=== PATIENT | female | born 1995 | race Caucasian/White ===

== ENCOUNTER 2017-10-30 14:36 | Emergency (ER) | payer BC, MEDICAID ==
[~2017-10-30] VITALS: Ht 175.3 cm; Wt 81.6 kg
--- OUTSIDE RECORDS SUMMARY | 2017-10-30 14:44 | XMS REPORT | Continuity of Care Document ---
Author Author [facility] Organization [facility] Address Unknown Phone Unavailable Allergies There is no data. Medications There is no data. Problems Date Dx Coded Attending Type Code Diagnosis Diagnosed By 11/22/2015 RENNY VARMA MD Ot R92.2 11/24/2015 RENNY VARMA MD Ot R92.2 11/28/2015 RENNY VARMA MD Ot R92.2 12/05/2015 RENNY VARMA MD Ot R92.2 02/03/2016 RENNY VARMA MD Ot R92.2 INCONCLUSIVE MAMMOGRAM 01/14/2017 RENNY VARMA MD, Ot R92.2 INCONCLUSIVE MAMMOGRAM Procedures There is no data. Results There is no data. Encounters ACCT No. Visit Date/Time Discharge Status Pt. Type Provider Facility Loc./Unit Complaint [id number] 11/21/2015 12:58:00 11/21/2015 23:59:59 CLS Outpatient RENNY VARMA MD [facility] [address] RAD LT BREAST WITH LUMP, RT BREAST NODULE
[2017-10-30] MEDS ORDERED: PRENATAL (15:03)
--- NOTE | 2017-10-30 15:08 | ED Syncope ---
General Chief Complaint: Dizziness/Syncope Stated Complaint: SYNCOPAL EPISODES Nursing Triage Note: ARRIVED VIA AMB TO ROOM 07. STATES SHE HAS HAD FAINTING SPELLS BEFORE AND DURING THIS AND KOJO WANTS HER TO HAVE A EKG. PT IS 14 WEEKS GESTATION. Source of Information: Patient Exam Limitations: No Limitations History of Present Illness Date Seen by Provider: Oct 30, 2017 Time Seen by Provider: 14:55 Initial Comments Patient presents to the ER by private conveyance with a chief complaint that she was told by Dr. Haas her ICE SELLER to come over here to be evaluated for her syncopal episodes. She had a syncopal episode this morning while she was at [employer] sitting in a chair and she passed out. This episode lasted only a few seconds. She did not fall nor strike her head. She did not have incontinence of bowel or bladder nor any wound her tongue or cheek. She denies any history of seizures or seizure-like activity. She did not have any chest pain, shortness of breath nausea or vomiting at the time. She has no painful urination, cough, fevers, chills. She is with a last menstrual period of July 19, 2017 putting her at 14 weeks and 5 days as a . She denies any vaginal bleeding, abdominal pain or double vision, blurry vision or spots in her vision. Patient states that these syncopal episodes come on every few weeks with her last one prior to today being 2 weeks ago. She says they initially started several months prior to her . She has no history of diabetes, hypothyroidism, cardiac problems, heart murmurs, swelling of her hands or feet. She denies a familial history of syncope, early coronary , seizure activity. She says lots of her family members have diabetes. She says when the episode comes on she'll can be sitting but typically is standing and she feels warm flushness in her face and feels like she needs to eat something before she passes out. Sometimes she sits down and get something to drink and eat she does not completely pass out. Allergies and Home Medications Allergies Coded Allergies: cefaclor (Verified Allergy, Unknown, 10/30/17) Constitutional: No chills, No diaphoresis, No dizziness, No fever, No malaise, No weakness EENTM: No ear discharge, No hearing loss, No blurred vision, No double vision, No eye pain Respiratory: No cough, No short of breath Cardiovascular: No chest pain, No palpitations, No syncope Gastrointestinal: No abdominal pain, No constipation, No diarrhea, No nausea, No vomiting Genitourinary: No discharge, No dysuria : Yes Musculoskeletal: No back pain, No joint pain Skin: No pruritus, No rash Past Ichzqkh-Ktngoy-Qeiaop Hx Patient Social History Alcohol Use: Denies Use Recreational Drug Use: No Smoking Status: Never a Smoker Recent Foreign Travel: No Contact w/Someone Who Travel: No Recent Infectious Disease Expo: No Recent Hopitalizations: No Surgeries History of Surgeries: Yes (TEETH) Respiratory History of Respiratory Disorde: No Cardiovascular History of Cardiac Disorders: No Neurological History of Neurological Disord: No Reproductive System : Yes Expected Date of Delivery: Apr 24, 2018 Last Menstrual Period: Jul 19, 2017 Genitourinary History of Genitourinary Disor: No Gastrointestinal History of Gastrointestinal Di: No Musculoskeletal History of Musculoskeletal Dis: No Endocrine History of Endocrine Disorders: No HEENT History of HEENT Disorders: No Cancer History of Cancer: No Psychosocial History of Psychiatric Problem: No Integumentary History of Skin or Integumenta: No Physical Exam Vital Signs Vital Signs - First Documented 10/30/17 14:56 Temp 98.0 Pulse 110 Resp 18 B/P (MAP) 142/89 (106) Pulse Ox 100 Capillary Refill : Less Than 3 Seconds General Appearance: No Apparent Distress, WD/WN HEENT: PERRL/EOMI, TMs Normal, Normal ENT Inspection, Pharynx Normal Neck: Full Range of Motion, Normal Inspection, Non Tender, Supple Cardiovascular: Regular Rate, Rhythm, No Edema, No JVD, No Murmur, Normal Peripheral Pulses Respiratory: Chest Non Tender, Lungs Clear, Normal Breath Sounds, No Accessory Muscle Use, No Respiratory Distress Gastrointestinal: Non Tender, Soft Extremities: Normal Capillary Refill, Normal Inspection Neurologic/Psychiatric: Alert, Oriented x3, No Motor/Sensory Deficits, Normal Mood/Affect Cranial Nerves: Normal Hearing, Normal Speech, PERRL Coordination/Gait: Normal Gait, Negative Romberg's Sign Motor/Sensory: No Motor Deficit, No Sensory Deficit Skin: Normal Color, Warm/Dry Progress/Results/Core Measures Results/Orders Lab Results Laboratory Tests Test 2/23/18 15:01 10/30/17 15:23 10/30/17 15:25 Range/Units Glucometer 112 H 70-110 MG/DL White Blood Count 11.6 H 4.3-11.0 10^3/uL Red Blood Count 4.75 4.35-5.85 10^6/uL Hemoglobin 13.8 11.5-16.0 G/DL Hematocrit 40 35-52 % Mean Corpuscular Volume 84 80-99 FL Mean Corpuscular Hemoglobin 29 25-34 PG Mean Corpuscular Hemoglobin Concent 34 32-36 G/DL Red Cell Distribution Width 13.4 10.0-14.5 % Platelet Count 242 130-400 10^3/uL Mean Platelet Volume 10.3 7.4-10.4 FL Neutrophils (%) (Auto) 74 42-75 % Lymphocytes (%) (Auto) 20 12-44 % Monocytes (%) (Auto) 6 0-12 % Eosinophils (%) (Auto) 0 0-10 % Basophils (%) (Auto) 0 0-10 % Neutrophils # (Auto) 8.6 H 1.8-7.8 X 10^3 Lymphocytes # (Auto) 2.3 1.0-4.0 X 10^3 Monocytes # (Auto) 0.6 0.0-1.0 X 10^3 Eosinophils # (Auto) 0.0 0.0-0.3 10^3/uL Basophils # (Auto) 0.0 0.0-0.1 10^3/uL Sodium Level 138 135-145 MMOL/L Potassium Level 3.4 L 3.6-5.0 MMOL/L Chloride Level 107 98-107 MMOL/L Carbon Dioxide Level 22 21-32 MMOL/L Anion Gap 9 5-14 MMOL/L Blood Urea Nitrogen 8 7-18 MG/DL Creatinine 0.65 0.60-1.30 MG/DL Estimat Glomerular Filtration Rate > 60 BUN/Creatinine Ratio 12 Glucose Level 103 70-105 MG/DL Calcium Level 9.1 8.5-10.1 MG/DL Total Bilirubin 0.2 0.1-1.0 MG/DL Aspartate Amino Transf (AST/SGOT) 11 5-34 U/L Alanine Aminotransferase (ALT/SGPT) 10 0-55 U/L Alkaline Phosphatase 66 40-136 U/L Troponin I < 0.30 <0.30 NG/ML Total Protein 7.1 6.4-8.2 GM/DL Albumin 3.9 3.2-4.5 GM/DL Urine Color YELLOW Urine Clarity CLEAR Urine pH 7 5-9 Urine Specific [place] 1.010 L 1.016-1.022 Urine Protein NEGATIVE NEGATIVE Urine Glucose (UA) NEGATIVE NEGATIVE Urine Ketones 1+ H NEGATIVE Urine Nitrite NEGATIVE NEGATIVE Urine Bilirubin NEGATIVE NEGATIVE Urine Urobilinogen NORMAL NORMAL MG/DL Urine Leukocyte Esterase NEGATIVE NEGATIVE Urine RBC (Auto) NEGATIVE NEGATIVE Urine RBC NONE /HPF Urine WBC NONE /HPF Urine Squamous Epithelial Cells 0-2 /HPF Urine Crystals NONE /LPF Urine Bacteria NONE /HPF Urine Casts NONE /LPF Urine Mucus NEGATIVE /LPF Urine Culture Indicated NO Urine Opiates Screen NEGATIVE NEGATIVE Urine Oxycodone Screen NEGATIVE NEGATIVE Urine Methadone Screen NEGATIVE NEGATIVE Urine Propoxyphene Screen NEGATIVE NEGATIVE Urine Barbiturates Screen NEGATIVE NEGATIVE Ur Tricyclic Antidepressants Screen NEGATIVE NEGATIVE Urine Phencyclidine Screen NEGATIVE NEGATIVE Urine Amphetamines Screen NEGATIVE NEGATIVE Urine Methamphetamines Screen NEGATIVE NEGATIVE Urine Benzodiazepines Screen NEGATIVE NEGATIVE Urine Cocaine Screen NEGATIVE NEGATIVE Urine Cannabinoids Screen NEGATIVE NEGATIVE My Orders Orders - RAN CARLTON Cbc With Automated Diff (10/30/17 15:01) Comprehensive Metabolic Panel (10/30/17 15:01) Drug Screen Stat (Urine) (10/30/17 15:01) Troponin I (10/30/17 15:01) Ua Culture If Indicated (10/30/17 15:01) Ekg Tracing (10/30/17 15:01) Continuous Ekg Monitoring (10/30/17 15:01) Orthostatic Vital Signs (Adult (10/30/17 15:01) Accucheck Stat ONCE (10/30/17 15:01) Vital Signs/I&O Vital Sign - Last 12Hours 10/30/17 10/30/17 14:56 15:17 Temp 98.0 Pulse 110 101 130 100 Resp 18 B/P (MAP) 142/89 (106) 128/84 (99) 125/75 (92) 123/66 (85) Pulse Ox 100 Blood Pressure Mean: 106 Progress Note #1: Time: 15:09 Progress Note EKG some blood work and urinalysis. This is been going on for several months now before she was . An Accu-Chek was 112 which certainly is not remarkable now. She is not having any symptoms at the moment. We'll get a set of orthostatic vitals about pots or dehydration. We'll hold off doing a chest x- ray at the moment to avoid getting radiation exposure unnecessarily. We Also talk to her about doing a outpatient bus driver/monitor which can probably be managed on an outpatient basis by her primary care or cardiology. Progress Note #2: Time: 16:26 Progress Note The patient's initial tachycardia is no longer seen as her heart rate is 89-90 which is physiologically acceptable for a second trimester now. She is not having any symptoms presently. She had orthostatic vitals obtained that demonstrated stable blood pressures however she has tachycardia with a heart rate going from 100-130 from sitting to standing. Concern for postural orthostatic tachycardia syndrome versus other. We have recommended that she follow up outpatient either with a primary care physician or we have offered to refer her to a repair weaver to have his Proceed. She would prefer just to establish care with a general dentist/owner doctor so we will give her a handout on Pots as well as local physicians. ECG Initial ECG Impression Date: Oct 30, 2017 Initial ECG Impression Time: 15:09 Initial ECG Rate: 123 Initial ECG Rhythm: S.Tach Initial ECG Intervals: Normal Initial ECG Impression: Normal, Nonspecific Changes Initial ECG Comparisson: No Previous ECG Available Comment No ST segment elevation or depression. Departure Impression Impression: Primary Impression: Syncopal episodes Qualified Codes: R55 - Syncope and collapse Disposition: 01 HOME, SELF-CARE Condition: Stable Departure-Patient Inst. Decision time for Depature: 16:28 Referrals: RENNY HAAS MD (PCP/Family) Primary Care Physician Patient Instructions: LOCAL PHYSICIAN LIST, Syncope (Fainting) (DC) Add. Discharge Instructions: Continue workup with your DRILLING MACHINE OPERATOR to think about things such as gestational diabetes. Make sure you're letting your legs dangling over the side of the bed before changing from a lying/sitting position to a standing position. When you do stand up please stand for about 10 seconds before taking off to try and reduce your incidence of passing out. If you feel your face becoming flush or he feels like you're about to have one of your fainting episodes he would be millard to get herself to a safe position if you're driving, pullover or understanding sit down or lie down get something to drink and eat with some sugar in it and if possible check your blood sugar while the episode is happening. If you're fainting episodes become more frequent or more dangerous or certain have new symptoms such as chest pain or shortness of breath or fevers please return to the ER immediately otherwise plan to follow up with a physician to have these worked up outpatient over the next 2-4 weeks. All discharge instructions reviewed with patient and/or family. Voiced understanding. Work/School Note: Work Release Form Date Seen in the Emergency Department: Oct 30, 2017 Return to Work: Oct 31, 2017 Restrictions: No Restrictions Copy Copies To 1: RENNY HAAS MD, TITUS J Oct 30, 2017 15:08
[2017-10-30 15:17] VITALS: BP_SYST 123; BP_SYST 125; BP_SYST 128; BP_DIAS 66; BP_DIAS 75; BP_DIAS 84
[2017-10-30 15:31] LABS: BASOPHILS % (AUTO) 0 % (0-10); EOSINOPHILS % (AUTO) 0 % (0-10); HEMATOCRIT 40 % (35-52); HEMOGLOBIN 13.8 G/DL (11.5-16.0); LYMPHOCYTES # (AUTO) 2.3 X 10^3 (1.0-4.0); LYMPHOCYTES % (AUTO) 20 % (12-44); MEAN CORPUSCULAR HEMOGLOBIN 29 PG (25-34); MEAN CORPUSCULAR HGB CONC 34 G/DL (32-36); MEAN CORPUSCULAR VOLUME 84 FL (80-99); MEAN PLATELET VOLUME 10.3 FL (7.4-10.4); MONOCYTES # (AUTO) 0.6 X 10^3 (0.0-1.0); MONOCYTES % (AUTO) 6 % (0-12); NEUTROPHILS # (AUTO) 8.6 X 10^3 (1.8-7.8); NEUTROPHILS % (AUTO) 74 % (42-75); PLATELET COUNT 242 10^3/uL (130-400); RED BLOOD COUNT 4.75 10^6/uL (4.35-5.85); RED CELL DISTRIBUTION WIDTH 13.4 % (10.0-14.5); WHITE BLOOD COUNT 11.6 10^3/uL (4.3-11.0)
[2017-10-30 15:39] LABS: BILIRUBIN,URINE NEGATIVE (NEGATIVE); CLARITY,URINE CLEAR; COLOR,URINE YELLOW; GLUCOSE, URINE (UA) NEGATIVE (NEGATIVE); KETONES,URINE 1+ (NEGATIVE); LEUKOCYTE ESTERASE ,URINE NEGATIVE (NEGATIVE); NITRITE,URINE NEGATIVE (NEGATIVE); PH,URINE 7 (5-9); PROTEIN,URINE NEGATIVE (NEGATIVE); UROBILINOGEN,URINE NORMAL (NORMAL)
[2017-10-30 15:52] LABS: ALANINE AMINOTRANSFERASE 10 U/L (0-55); ALBUMIN 3.9 GM/DL (3.2-4.5); ALKALINE PHOSPHATASE 66 U/L (40-136); BILIRUBIN,TOTAL 0.2 MG/DL (0.1-1.0); BUN/CREATININE RATIO 12; CALCIUM 9.1 MG/DL (8.5-10.1); CARBON DIOXIDE 22 MMOL/L (21-32); CHLORIDE 107 MMOL/L (98-107); CREATININE SERUM 0.65 MG/DL (0.60-1.30); GFR ESTIMATED > 60; GLUCOSE 103 MG/DL (70-105); POTASSIUM 3.4 MMOL/L (3.6-5.0); SODIUM 138 MMOL/L (135-145); TOTAL PROTEIN 7.1 GM/DL (6.4-8.2)
[2017-10-30 16:02] LABS: SQUAMOUS EPITHELIAL CELL,UR 0-2 /HPF
[2017-10-30 16:07] LABS: AMPHETAMINE SCREEN, URINE NEGATIVE (NEGATIVE); BARBITURATE SCREEN URINE NEGATIVE (NEGATIVE); BENZODIAZEPINES SCREEN URINE NEGATIVE (NEGATIVE); CANNABINOID SCREEN, URINE NEGATIVE (NEGATIVE); COCAINE SCREEN URINE NEGATIVE (NEGATIVE); METHADONE STAT NEGATIVE (NEGATIVE); METHAMPHETAMINE SCREEN URINE S NEGATIVE (NEGATIVE); OPIATE SCREEN URINE NEGATIVE (NEGATIVE); OXYCODONE STAT NEGATIVE (NEGATIVE); PROPOXYPHENE STAT NEGATIVE (NEGATIVE); TRICYCLIC ANTIDEPRESSANTS SCRE NEGATIVE (NEGATIVE)
[2017-10-30 16:37] VITALS: BP 125/73
== END 2017-10-30 16:37 | disposition home or self-care (01) ==
LOC: EDUNIT# 14:36 → ER 14:40
DX: O26.892 Other specified pregnancy related conditions, second trimester (principal); R55 Syncope and collapse; Z88.8 Allergy status to other drugs, medicaments and biological substances; Z3A.14 14 weeks gestation of pregnancy
CPT/HCPCS: 36415; 80053; 80306; 81000; 82962; 84484; 85025; 93005

== ENCOUNTER 2018-02-07 14:25 | Outpatient (CLI) | payer MEDICAID ==
[~2018-02-07 14:25] MED LIST: PRENATAL
== END 2018-02-07 15:15 | disposition home or self-care (01) ==
LOC: WSo 14:25
PROVIDERS: ATTEND Obstetrics & Gynecology
DX: Z31.82 Encounter for Rh incompatibility status (principal)
CPT/HCPCS: 96372

== ENCOUNTER 2018-04-09 07:10 | Inpatient (IN) | payer MEDICAID ==
[~2018-04-09] VITALS: Ht 175.3 cm; Wt 99.8 kg
[2018-04-09] VITALS (67 sets, daily range): BP systolic 105–174; BP diastolic 53–103
[2018-04-09] MEDS ORDERED: OXYTOCIN/NORMAL SALINE 500 ML IV SCH ×2 (07:42→22:22)
[2018-04-09 08:08] LABS: BASOPHILS % (AUTO) 0 % (0-10); EOSINOPHILS # (AUTO) 0.1 10^3/uL (0.0-0.3); EOSINOPHILS % (AUTO) 1 % (0-10); HEMATOCRIT 35 % (35-52); HEMOGLOBIN 11.3 G/DL (11.5-16.0); LYMPHOCYTES # (AUTO) 3.2 X 10^3 (1.0-4.0); LYMPHOCYTES % (AUTO) 28 % (12-44); MEAN CORPUSCULAR HEMOGLOBIN 26 PG (25-34); MEAN CORPUSCULAR HGB CONC 33 G/DL (32-36); MEAN CORPUSCULAR VOLUME 79 FL (80-99); MONOCYTES # (AUTO) 1.2 X 10^3 (0.0-1.0); MONOCYTES % (AUTO) 10 % (0-12); NEUTROPHILS # (AUTO) 6.8 X 10^3 (1.8-7.8); NEUTROPHILS % (AUTO) 61 % (42-75); PLATELET COUNT 238 10^3/uL (130-400); RED BLOOD COUNT 4.41 10^6/uL (4.35-5.85); RED CELL DISTRIBUTION WIDTH 14.3 % (10.0-14.5); WHITE BLOOD COUNT 11.3 10^3/uL (4.3-11.0)
[2018-04-09] MEDS: D5 LR IV SOLUTION 1,000 ML IV SCH ×2 (08:15→20:45)
[2018-04-09] MEDS ORDERED: BUPIVACAINE 0.25% 30 ML (SENSORCAINE) VIAL ONE ×2 (16:12→17:17)
[2018-04-09] MEDS ORDERED: fentaNYL INJECTION 100 MCG/2 ML AMP ONE (16:12)
[2018-04-09] MEDS ORDERED: SUFENTA 0.6MCG/ML BUPIVA 0.125 100 ML ONE (16:17)
[2018-04-09] MEDS ORDERED: CATHETER FLUSH 10 ML SYR IV PRN (18:00)
[2018-04-09] MEDS ORDERED: NALOXONE 0.4 MG/ML 1 ML (NARCAN) VIAL IV PRN (18:00)
[2018-04-09] MEDS ORDERED: LACTATED RINGERS 1,000 ML IV ONE (18:00)
[2018-04-09] MEDS ORDERED: EPIDURAL (SUFENTA 0.6MCG/ML BUPIVA 0.125%) 100 ML BAG EPI SCH (18:00)
[2018-04-09] MEDS ORDERED: LIDOCAINE/EPI 2% 1:200,00 (XYLOCAINE) 10 ML VIAL ONE (21:29)
[2018-04-09] MEDS ORDERED: METHYLERGONOVINE 0.2 MG/ML (METHERGINE) AMP ONE (22:03)
[2018-04-09] MEDS ORDERED: OXYC-197 PO (22:27)
[2018-04-09] MEDS ORDERED: DOCU-143 PO (22:27)
[2018-04-09] MEDS ORDERED: IBUP-1780 PO (22:27)
--- NOTE | 2018-04-09 22:28 | Discharge Instructions ---
Discharge Instructions Discharge Medications New, Converted or Re-Newed RX: RX on Chart Patient Instructions Patient Instructions: as directed Return to The Hospital For: As directed Activity & Diet Discharge Diet: No Restrictions Activity as Tolerated: No Orders-Post D/C & Referrals Follow Up Appt: Call to make follow up appt. for patient in 4 weeks. Activity Per routine post vaginal delivery instructions. Diet as tolerated Patient may shower or tub bathe as desired. RENNY VARMA MD Apr 09, 2018 10:28 pm
[2018-04-09] MEDS ORDERED: BENZOCAINE/MENTHOL (DERMOPLAST) 56 ML CAN TP PRN (22:30)
[2018-04-09] MEDS ORDERED: MEASLES,MUMPS,RUBELLA 1 EA INJ SC ONE (22:30)
[2018-04-09] MEDS ORDERED: ONDANSETRON 4 MG/2 ML (SDV) Z0FRAN IVP PRN (22:30)
[2018-04-09] MEDS ORDERED: KETOROLAC 30 MG/ML VIAL IV SCH (22:30)
[2018-04-09] MEDS ORDERED: oxyCODONE/APAP 5/325MG (PERCOCET 5) TABLET PO PRN (22:30)
[2018-04-09] MEDS ORDERED: TETANUS,DIPTH,PERTUSS P/F (BOOSTRIX) 0.5 ML VIAL IM ONE (22:30)
[2018-04-09] MEDS ORDERED: METHYLERGONOVINE 0.2 MG/ML (METHERGINE) AMP IM ONE (23:30)
[2018-04-10] VITALS (9 sets, daily range): BP systolic 114–146; BP diastolic 57–86
--- NOTE | 2018-04-10 00:47 | OPERATIVE REPORT ---
DATE OF SERVICE: 04/09/2018 DELIVERY NOTE The patient delivered by term spontaneous vaginal delivery a viable female infant with Apgars of 8 and 9 at 1 and 5 minutes respectively. Weight is 6 pounds 4 ounces. time of 21:50 and a cord blood gas that is pending. Infant had a nuchal cord x1 that was easily released after delivery of the head. Once the head delivered, the was bulb suctioned, the nuchal cord was released and delivery completed atraumatically. The was bulb suctioned again as it was warmed, dried and stimulated as the pulse became undetectable in the cord, the cord was doubly clamped, father cut the cord and the baby was passed to mom's abdomen. The baby was quickly pink, moved all extremities, had excellent tone and reflexes and a lusty cry. The placenta delivered spontaneously Dasilva. It was normal with a 3-vessel cord. The cervix, vagina, rectum and perineum were examined and found intact, except for a 3 cm posterior fourchette/perineal first degree laceration that was repaired with a single suture of 3-0 Vicryl Rapide in a running fashion in the usual manner. Good hemostasis was achieved. The uterus was somewhat atonic responding transiently to the IV Pitocin. A single dose of Methergine was given to increase ecbolic effect and had good effect and the uterus stayed contracted nicely and blood loss was minimized. Total blood loss was around 400 to 450 mL. The sponge and needle counts were correct on completion of the delivery and the repair. Mom remained in the LDR for recovery. The baby remained with the mom. Job ID: [id number] DocumentID: [id number] Dictated Date: 04/09/2018 22:14:02 Photostat Operator Date: 04/10/2018 00:47:13 Dictated By: RENNY VARMA MD MTDD
--- OUTSIDE RECORDS SUMMARY | 2018-04-10 03:39 | XMS REPORT ---
Author Marlene Hernandez Organization [facility] Address [address] [place], [place] [id number] Care Team Providers Care Manager Merchandising Name Role Phone Marlene Ibanez PCP Unavailable Allergies and Adverse Reactions Name Reaction Notes Ceclor Plan of Treatment Planned Activity Comments Planned Date Planned Time Plan/Goal METABOLIC PANEL TOTAL CA 10/18/2015 12:00 AM COMPLETE CBC W/AUTO DIFF WBC 10/18/2015 12:00 AM ASSAY THYROID STIM HORMONE 10/18/2015 12:00 AM THER/PROPH/DIAG INJ SC/IM 09/09/2012 12:00 AM THER/PROPH/DIAG INJ SC/IM 11/25/2012 12:00 AM THER/PROPH/DIAG INJ SC/IM 05/06/2014 12:00 AM Medications Active Name Start Date Estimated Completion Date SIG Comments Tri-Sprintec (28) 0.18/0.215/0.25 mg-35 mcg (28) oral tablet 02/12/2015 take 1 tablet by oral route once daily Tri-Sprintec (28) 0.18/0.215/0.25 mg-35 mcg (28) oral tablet 10/17/2015 TAKE ONE TABLET BY MOUTH ONCE DAILY Imitrex 50 mg oral tablet 10/18/2015 take 1 tablet (50 mg) by oral route once with fluids as early as possible after the onset of a migraine attack;may repeat after 2 hours if headache returns, not to exceed 200mg in 24hrs Brintellix 10 mg oral tablet 10/18/2015 take 1 tablet by oral route daily Name Start Date Expiration Date SIG Comments Retin-A 0.025 % topical gel 12/25/2009 03/25/2010 apply to the affected area(s ) by topical route once daily at bedtime for 30 days Bactroban 2 % topical ointment 05/27/2013 06/01/2013 apply a small amount to the affected area by topical route 3 times per day for 5 days Zithromax Z-Keagan 250 mg oral tablet 05/06/2014 05/11/2014 take 2 tablets (500 mg ) by oral route once daily for 1 day then 1 tablet (250 mg) by oral route once daily for 4 days Claritin-D 12 Hour 5-120 mg oral tablet extended release 12 hr 05/06/201405/21 take 1 tablet by oral route every 12 hours for 15 days Discontinued Name Start Date Discontinued Date SIG Comments Benzaclin 1-5 % topical gel 12/25/2009 12/26/2009 apply to affected area(s) by topical route once a day (in the morning) for 30 days MOM SAID IT WAS TOO EXPENSIVE Benzamycin 3-5 % topical gel 07/14/2011 apply to the affected area(s) by topical route 2 times per day in the morning and evening for 30 days Safyral 3-0.03-0.451 mg (27/03) oral tablet 07/14/2011 09/03/2012 take 1 tablet by oral route daily Problem List Description Status Onset Menorrhagia Active 09/11/2011 Vital Signs Date Time BP-Sys(mm[Hg] BP-Marleen(mm[Hg]) HR(bpm) RR(rpm) Temp WT HT HC BMI BSA BMI Percentile O2 Sat(%) 10/18/2015 1:44:00 PM 132 mmHg 76 mmHg 112 bpm 18 rpm 97.2 F 198.25 lbs 69 in 29.28 kg/m2 2.09 m2 92.9 % 100 % 02/12/2015 1:09:00 PM 122 mmHg 72 mmHg 78 bpm 18 rpm 98.3 F 69 in 100 % 05/06/2014 11:13:00 AM 122 mmHg 64 mmHg 92 bpm 18 rpm 97.7 F 159 lbs 69 in 23.48 kg/m2 1.87 m2 74 % 100 % 03/20/2014 11:21:00 AM 115 mmHg 63 mmHg 74 bpm 18 rpm 98.2 F 159.2 lbs 69 in 23.5095 kg/m 1.875 m 74.6 % 100 % 05/27/2013 3:56:00 PM 105 mmHg 68 mmHg 98 bpm 18 rpm 99.7 F 168.375 lbs 69 in 24.86 kg/m2 1.93 m2 84.5 % 99 % 09/09/2012 2:22:00 PM 118 mmHg 68 mmHg 100 bpm 18 rpm 98 F 161 lbs 69 in 23.7753 kg/m 1.8855 m 81.1 % 100 % 07/14/2011 2:34:00 PM 116 mmHg 62 mmHg 88 bpm 20 rpm 98.5 F 170 lbs 68.5 in 25.47 kg/m2 1.93 m2 90.6 % 07/29/2010 4:49:00 PM 109 mmHg 56 mmHg 120 bpm 22 rpm 96.5 F 182.8 lbs 12/25/2009 3:44:00 PM 108 mmHg 72 mmHg 72 bpm 16 rpm 98.8 F 192.25 lbs 67 in 30.1103 kg/m 2.03 m2 97.9 % Social History Name Description Comments denies alcohol use Tobacco Never smoker History of Procedures Date Ordered Description Order Status 10/18/2015 12:00 AM Breast ultrasound Returned 09/11/2011 12:00 AM URINE TEST Reviewed 09/09/2012 12:00 AM METABOLIC PANEL TOTAL CA Reviewed 09/09/2012 12:00 AM COMPLETE CBC W/AUTO DIFF WBC Reviewed 09/09/2012 12:00 AM ASSAY OF IRON Reviewed 05/06/2014 12:00 AM Depo-Medrol 40mg Reviewed 05/06/2014 12:00 AM Decadron injection Reviewed Results Summary Not available. History Of Immunizations Name Date Admin Mfg Name Mfg Code Trade Name Lot# Route Inj Vis Given Vis Pub CVX DTaP 04/12/1998 sanofi pasteur PMC DAPTACEL Intramuscular Not Entered 09/07/2015 999 DTaP 12/24/2001 sanofi pasteur PMC DAPTACEL Intramuscular Not Entered 01/08/2010 09/07/2015 999 Varicella 10/30/1997 [employer] MSD Varivax Subcutaneous Not Entered 01/08/2010 09/07/2015 999 Pneumococcal 10/29/1998 [employer] MSD Pneumovax 23 Intramuscular Not Entered 01/08/2010 09/07/2015 999 MMR 04/12/1998 [employer] MSD MMR II Subcutaneous Not Entered 01/08/201009/07/2015 999 MMR 12/24/2001 [employer] MSD MMR II Subcutaneous Not Entered 09/07/2015 999 Hib 04/12/1998 sanofi pasteur PMC ActHib Intramuscular Not Entered 200909/07/2015 999 Td 04/24/2009 sanofi pasteur PMC DECAVAC Intramuscular Not Entered 01/0809/07/2015 999 IPV 10/04/2001 sanofi pasteur PMC IPOL Not Entered Not Entered 200909/07/2015 999 History of Past Illness Name Date of Onset Comments Blocked Tear Duct, Congenital Acne Dec 25 2009 3:50PM Menorrhagia 09/11/2011 Abdominal Pain, Generalized Jul 29 2010 4:51PM Gastroenteritis, Viral Jul 29 2010 4:51PM Menorrhagia Jul 14 2011 2:35PM Syncope Sep 09 2012 2:26PM Menorrhagia Sep 09 2012 2:26PM Contraceptive counseling (Depo-Provera) Nov 25 2012 11:55AM Contraceptive counseling (Depo-Provera) Dec 27 2012 10:55AM Insect Bite without infection May 27 2013 3:58PM Oral contraceptive pill surveillance Mar 20 2014 11:23AM Frontal Sinusitis, Acute May 06 2014 11:17AM Oral contraceptive pill surveillance Feb 12 2015 1:10PM Fatigue, unspecified type Oct 18 2015 1:45PM Acute intractable headache, unspecified headache type Oct 18 2015 1:45PM Breast tenderness in female Oct 18 2015 1:45PM Breast cyst, left Oct 18 2015 1:45PM Depression, unspecified depression type Oct 18 2015 1:45PM Payers Insurance Name Company Name Plan Name Plan Number Policy Number Policy Group Number Start Date [employer] [place] [id number] Thursday, 2010 [employer] [place] [id number] N/A [employer] [place] [id number] Thursday, 2009 History of Encounters Visit Date Visit Type Provider 10/18/2015 Office visit Marlene Ibanez JEWEL BEARING GRINDER 02/12/2015 Office visit Chelo Mendez JEWEL BEARING GRINDER 05/06/2014 Office visit Babak Em PA-C 03/20/2014 Office visit Chelo Mendez JEWEL BEARING GRINDER 05/27/2013 Office visit Allan May JEWEL BEARING GRINDER 11/25/2012 Nurse visit Daija Ann RN 09/09/2012 Office visit Rajan Franz MD 07/14/2011 Office visit Rajan Franz MD 07/29/2010 Office visit Alexandria Bueno MD 12/25/2009 Office visit Alexandria Bueno MD 06/05/2009 Office visit Rissa STEEL
--- OUTSIDE RECORDS SUMMARY | 2018-04-10 03:39 | XMS REPORT ---
Author Author Rajan Franz [facility] Address [address] [place], [place] [id number] Care Team Providers Care Smoke Control Supervisor Name Role Phone Rajan Franz PCP Unavailable Allergies and Adverse Reactions Name Reaction Notes Ceclor Plan of Treatment Not available. Medications Active Name Start Date Estimated Completion Date SIG Comments Tri-Sprintec (28) oral tablet 0.18/0.215/0.25 mg-35 mcg (28) 02/12/2015 take 1 tablet by oral route once daily Name Start Date Expiration Date SIG Comments Retin-A Topical Gel 0.025 % 12/25/2009 03/25/2010 apply to the affected area(s ) by topical route once daily at bedtime for 30 days Bactroban Topical Ointment 2 % 05/27/2013 06/01/2013 apply a small amount to the affected area by topical route 3 times per day for 5 days Zithromax Z-Keagan oral tablet 250 mg 05/06/2014 05/11/2014 take 2 tablets (500 mg ) by oral route once daily for 1 day then 1 tablet (250 mg) by oral route once daily for 4 days Claritin-D 12 Hour oral tablet extended release 12 hr 5-120 mg 05/06/201405/21 take 1 tablet by oral route every 12 hours for 15 days Discontinued Name Start Date Discontinued Date SIG Comments Benzaclin Topical Gel 1-5 % 12/25/2009 12/26/2009 apply to affected area(s) by topical route once a day (in the morning) for 30 days MOM SAID IT WAS TOO EXPENSIVE Benzamycin Topical Gel 3-5 % 07/14/2011 apply to the affected area(s) by topical route 2 times per day in the morning and evening for 30 days Safyral Oral Tablet 3-0.03-0.451 mg (21) 07/14/2011 09/03/2012 take 1 tablet by oral route daily Problem List Description Status Onset Menorrhagia Active 09/11/2011 Vital Signs Date Time BP-Sys(mm[Hg] BP-Marleen(mm[Hg]) HR(bpm) RR(rpm) Temp WT HT HC BMI BSA BMI Percentile O2 Sat(%) 02/12/2015 1:09:00 PM 122 mmHg 72 mmHg 78 bpm 18 rpm 98.3 F 69 in 100 % 05/06/2014 11:13:00 AM 122 mmHg 64 mmHg 92 bpm 18 rpm 97.7 F 159 lbs 69 in 23.48 kg/m 1.8738 m 74 % 100 % 03/20/2014 11:21:00 AM 115 mmHg 63 mmHg 74 bpm 18 rpm 98.2 F 159.2 lbs 69 in 23.51 kg/m2 1.87 m2 74.6 % 100 % 05/27/2013 3:56:00 PM 105 mmHg 68 mmHg 98 bpm 18 rpm 99.7 F 168.375 lbs 69 in 24.8644 kg/m 1.9282 m 84.5 % 99 % 09/09/2012 2:22:00 PM 118 mmHg 68 mmHg 100 bpm 18 rpm 98 F 161 lbs 69 in 23.78 kg/m2 1.89 m2 81.1 % 100 % 07/14/2011 2:34:00 PM 116 mmHg 62 mmHg 88 bpm 20 rpm 98.5 F 170 lbs 68.5 in 25.4722 kg/m 1.9305 m 90.6 % 07/29/2010 4:49:00 PM 109 mmHg 56 mmHg 120 bpm 22 rpm 96.5 F 182.8 lbs 12/25/2009 3:44:00 PM 108 mmHg 72 mmHg 72 bpm 16 rpm 98.8 F 192.25 lbs 67 in 30.1103 kg/m 2.0303 m 97.9 % Social History Name Description Comments denies alcohol use Tobacco Never smoker History of Procedures Date Ordered Description Order Status 09/11/2011 12:00 AM URINE TEST Reviewed 09/09/2012 12:00 AM METABOLIC PANEL TOTAL CA Reviewed 09/09/2012 12:00 AM COMPLETE CBC W/AUTO DIFF WBC Reviewed 09/09/2012 12:00 AM ASSAY OF IRON Reviewed Results Summary Not available. History Of Immunizations Name Date Admin Mfg Name Mfg Code Trade Name Lot# Route Inj Vis Given Vis Pub CVX DTaP 04/12/1998 sanofi pasteur PMC DAPTACEL Intramuscular Not Entered 09/07/2014 999 DTaP 12/24/2001 sanofi pasteur PMC DAPTACEL Intramuscular Not Entered 01/08/2010 09/07/2014 999 Varicella 10/30/1997 [employer] MSD Varivax Subcutaneous Not Entered 01/08/2010 09/07/2014 999 Pneumococcal 10/29/1998 [employer] MSD Pneumovax 23 Intramuscular Not Entered 01/08/2010 09/07/2014 999 MMR 04/12/1998 [employer] MSD MMR II Subcutaneous Not Entered 01/08/201009/07/2014 999 MMR 12/24/2001 [employer] MSD MMR II Subcutaneous Not Entered 09/07/2014 999 Hib 04/12/1998 sanofi pasteur PMC ActHib Intramuscular Not Entered 200909/07/2014 999 Td 04/24/2009 sanofi pasteur PMC DECAVAC Intramuscular Not Entered 01/0809/07/2014 999 IPV 10/04/2001 sanofi pasteur PMC IPOL Not Entered Not Entered 200909/07/2014 999 History of Past Illness Name Date [...] contraceptive pill surveillance Feb 12 2015 1:10PM Payers Insurance Name Company Name Plan Name Plan Number Policy Number Policy Group Number Start Date [facility]cbs [facility] [id number] Thursday, 2010 [employer] [facility] [id number] N/A [employer]bs [employer] [place] [id number] Thursday, 2009 History of Encounters Visit Date Visit Type Provider 02/12/2015 Office visit Chelo Mendez MDS NURSE 05/06/2014 Office visit Babak Em PA-C 03/20/2014 Office visit Chelo Mendez MDS NURSE 05/27/2013 Office visit Allan May MDS NURSE 11/25/2012 Nurse visit Daija Ann RN 09/09/2012 Office visit Rajan Franz MD 07/14/2011 Office visit Rajan Franz MD 07/29/2010 Office visit Alexandria Bueno MD 12/25/2009 Office visit Alexandria Bueno MD 06/05/2009 Office visit Rissa STEEL
--- OUTSIDE RECORDS SUMMARY | 2018-04-10 03:39 | XMS REPORT ---
Author Author Marlene Ibanez Organization [facility] Address [address] [place], [place] [id number] Care Team Providers Care Coal Handler Name Role Phone Marlene Ibanez PCP Unavailable Allergies and Adverse Reactions Name Reaction Notes Ceclor Plan of Treatment Planned Activity Comments Planned Date Planned Time Plan/Goal METABOLIC PANEL TOTAL CA 10/18/2015 12:00 AM COMPLETE CBC W/AUTO DIFF WBC 10/18/2015 12:00 AM ASSAY THYROID STIM HORMONE 10/18/2015 12:00 AM Breast ultrasound 10/18/2015 12:00 AM THER/PROPH/DIAG INJ SC/IM 09/09/2012 [...] Group Number Start Date [employer] [place] [id number] Thursday, 2010 [employer] [place] [id number] N/A [employer] [place] [id number] Thursday, 2009 History of Encounters Visit Date Visit Type Provider 10/18/2015 Office visit Marlene Ibanez DRAWING IN HAND 02/12/2015 Office visit Chelo Mendez DRAWING IN HAND 05/06/2014 Office visit Babak Em PA-C 03/20/2014 Office visit Chelo Mendez DRAWING IN HAND 05/27/2013 Office visit Allan May DRAWING IN HAND 11/25/2012 Nurse visit Daija Ann RN 09/09/2012 Office visit Rajan Franz MD 07/14/2011 Office visit Rajan Franz MD 07/29/2010 Office visit Alexandria Bueno MD 12/25/2009 Office visit Alexandria Bueno MD 06/05/2009 Office visit Rissa STEEL
--- OUTSIDE RECORDS SUMMARY | 2018-04-10 03:40 | XMS REPORT | Continuity of Care Document ---
Author Author [facility] Address Unknown Phone Unavailable Allergies Active Description Code Type Severity Reaction Onset Reported/Identified Relationship to Patient Clinical Status Yes cefaclor [id number] Drug Allergy Unknown N/A 10/30/2017 Medications There is no data. Problems Date Dx Coded Attending Type Code Diagnosis Diagnosed By 11/22/2015 RENNY VARMA MD Ot R92.2 11/24/2015 RENNY VARMA MD Ot R92.2 11/28/2015 RENNY VARMA MD Ot R92.2 12/05/2015 RENNY VARMA MD Ot R92.2 02/03/2016 RENNY VARMA MD Ot R92.2 INCONCLUSIVE MAMMOGRAM 01/14/2017 RENNY VARMA MD Ot R92.2 INCONCLUSIVE MAMMOGRAM 10/30/2017 RAN CARLTON MD Ot O26.892 OTH RELATED CONDITIONS, SECOND 10/30/2017 RAN CARLTON MD Ot R55 SYNCOPE AND COLLAPSE 10/30/2017 RAN CARLTON MD Ot Z3A.14 14 WEEKS GESTATION OF 10/30/2017 RAN CARLTON MD Ot Z88.8 ALLERGY STATUS TO OTH DRUG/MEDS/BIOL SUB 10/30/2017 RENNY VARMA MD Ot R92.2 INCONCLUSIVE MAMMOGRAM 11/02/2017 RAN CARLTON MD Ot O26.892 OTH RELATED CONDITIONS, SECOND 11/02/2017 RAN CARLTON MD Ot R55 SYNCOPE AND COLLAPSE 11/02/2017 RAN CARLTON MD Ot Z3A.14 14 WEEKS GESTATION OF 11/02/2017 RAN CARLTON MD Ot Z88.8 ALLERGY STATUS TO OTH DRUG/MEDS/BIOL SUB 02/07/2018 RENNY VARMA MD Ot Z31.82 ENCOUNTER FOR RH INCOMPATIBILITY STATUS 02/08/2018 KOJO NAYLOR, RENNY Taylor Evans Z31.82 ENCOUNTER FOR RH INCOMPATIBILITY STATUS Procedures There is no data. Results Test Result Range Capillary blood glucose measurement by glucometer (mass/volume) - 10/30/17 15: 01 Capillary blood glucose measurement by glucometer (mass/volume) 112 mg/dL 70-110 Complete blood count (CBC) with automated white blood cell (WBC) differential - 10/30/17 15:23 Blood leukocytes automated count (number/volume) 11.6 10*3/uL 4.3-11.0 Blood erythrocytes automated count (number/volume) 4.75 10*6/uL 4.35-5.85 Venous blood hemoglobin measurement (mass/volume) 13.8 g/dL 11.5-16.0 Blood hematocrit (volume fraction) 40 % 35-52 Automated erythrocyte mean corpuscular volume 84 [foz_us] 80-99 Automated erythrocyte mean corpuscular hemoglobin (mass per erythrocyte) 29 pg 25-34 Automated erythrocyte mean corpuscular hemoglobin concentration measurement ( mass/volume) 34 g/dL 32-36 Automated erythrocyte distribution width ratio 13.4 % 10.0-14.5 Automated blood platelet count (count/volume) 242 10*3/uL 130-400 Automated blood platelet mean volume measurement 10.3 [foz_us] 7.4-10.4 Automated blood neutrophils/100 leukocytes 74 % 42-75 Automated blood lymphocytes/100 leukocytes 20 % 12-44 Blood monocytes/100 leukocytes 6 % 0-12 Automated blood eosinophils/100 leukocytes 0 % 0-10 Automated blood basophils/100 leukocytes 0 % 0-10 Blood neutrophils automated count (number/volume) 8.6 10*3 1.8-7.8 Blood lymphocytes automated count (number/volume) 2.3 10*3 1.0-4.0 Blood monocytes automated count (number/volume) 0.6 10*3 0.0-1.0 Automated eosinophil count 0.0 10*3/uL 0.0-0.3 Automated blood basophil count (count/volume) 0.0 10*3/uL 0.0-0.1 Comprehensive metabolic panel - 10/30/17 15:23 Serum or plasma sodium measurement (moles/volume) 138 mmol/L 135-145 Serum or plasma potassium measurement (moles/volume) 3.4 mmol/L 3.6-5.0 Serum or plasma chloride measurement (moles/volume) 107 mmol/L 98-107 Carbon dioxide 22 mmol/L 21-32 Serum or plasma anion gap determination (moles/volume) 9 mmol/L 5-14 Serum or plasma urea nitrogen measurement (mass/volume) 8 mg/dL 7-18 Serum or plasma creatinine measurement (mass/volume) 0.65 mg/dL 0.60-1.30 Serum or plasma urea nitrogen/creatinine mass ratio 12 NRG Serum or plasma creatinine measurement with calculation of estimated glomerular filtration rate > NRG Serum or plasma glucose measurement (mass/volume) 103 mg/dL 70-105 Serum or plasma calcium measurement (mass/volume) 9.1 mg/dL 8.5-10.1 Serum or plasma total bilirubin measurement (mass/volume) 0.2 mg/dL 0.1-1.0 Serum or plasma alkaline phosphatase measurement (enzymatic activity/volume) 66 U/L 40-136 Serum or plasma aspartate aminotransferase measurement (enzymatic activity/ volume) 11 U/L 5-34 Serum or plasma alanine aminotransferase measurement (enzymatic activity/volume ) 10 U/L 0-55 Serum or plasma protein measurement (mass/volume) 7.1 g/dL 6.4-8.2 Serum or plasma albumin measurement (mass/volume) 3.9 g/dL 3.2-4.5 Serum or plasma troponin i.cardiac measurement (mass/volume) - 10/30/17 15:23 Serum or plasma troponin i.cardiac measurement (mass/volume) < ng/ mL <0.30 Complete urinalysis with reflex to culture - 10/30/17 15:25 Urine color determination YELLOW NRG Urine clarity determination CLEAR NRG Urine pH measurement by test strip 7 5-9 Specific gravity of urine by test strip 1.010 1.016- 1.022 Urine protein assay by test strip, semi-quantitative NEGATIVE NEGATIVE Urine glucose detection by automated test strip NEGATIVE NEGATIVE Erythrocytes detection in urine sediment by light microscopy NEGATIVE NEGATIVE Urine ketones detection by automated test strip 1+ NEGATIVE Urine nitrite detection by test strip NEGATIVE NEGATIVE Urine total bilirubin detection by test strip NEGATIVE NEGATIVE Urine urobilinogen measurement by automated test strip (mass/volume) NORMAL NORMAL Urine leukocyte esterase detection by dipstick NEGATIVE NEGATIVE Automated urine sediment erythrocyte count by microscopy (number/high power field) NONE NRG Automated urine sediment leukocyte count by microscopy (number/high power field ) NONE NRG Bacteria detection in urine sediment by light microscopy NONE NRG Squamous epithelial cells detection in urine sediment by light microscopy 0-2 NRG Crystals detection in urine sediment by light microscopy NONE NRG Casts detection in urine sediment by light microscopy NONE NRG Mucus detection in urine sediment by light microscopy NEGATIVE NRG Complete urinalysis with reflex to culture NO NRG Urine drug screening test - 10/30/17 15:25 Urine phencyclidine detection by screening method NEGATIVE NEGATIVE Urine benzodiazepines detection by screening method NEGATIVE NEGATIVE Urine cocaine detection NEGATIVE NEGATIVE Urine amphetamines detection by screening method NEGATIVE NEGATIVE Urine methamphetamine detection by screening method NEGATIVE NEGATIVE Urine cannabinoids detection by screening method NEGATIVE NEGATIVE Urine opiates detection by screening method NEGATIVE NEGATIVE Urine barbiturates detection NEGATIVE NEGATIVE Screening urine tricyclic antidepressants detection NEGATIVE NEGATIVE Urine methadone detection by screening method NEGATIVE NEGATIVE Urine oxycodone detection NEGATIVE NEGATIVE Urine propoxyphene detection NEGATIVE NEGATIVE RH IMMUNE GLOBULIN RHOPHYLAC - 02/07/18 14:33 RH IMMUNE GLOBULIN RHOPHYLAC PRSMD TRFSD 02/07/18 1449 NRG [id number] - 02/07/18 14:33 [id number] 300ug NRG Lot number - 02/07/18 14:33 Lot number [id number] NRG cell screen - 02/07/18 14:33 cell screen 08/21/19 NRG Encounters ACCT No. Visit Date/Time Discharge Status Pt. Type Provider Facility Loc./Unit Complaint [id number] 10/18/2015 14:37:33 10/18/2015 23:59:59 CLS Outpatient Marlene Ibanez [id number] 04/16/2015 21:50:40 04/16/2015 23:59:59 CLS Outpatient Chelo Mendez [id number] 05/06/2014 12:06:49 05/06/2014 23:59:59 CLS Outpatient Babak Em [id number] 03/20/2014 12:06:39 03/20/2014 23:59:59 CLS Outpatient Chelo Mendez [id number] 02/07/2018 14:25:00 02/07/2018 15:15:00 DIS Outpatient KOJO [facility]OR[facility] [id number] 10/30/2017 14:40:00 10/30/2017 16:37:00 DIS Emergency BRANDT NAYLOR, RAN [facility] ER SYNCOPAL EPISODES [id number] 11/21/2015 12:58:00 11/21/2015 23:59:59 CLS Outpatient KOJO NAYLOR, RENNY [facility] RAD LT BREAST WITH LUMP, RT BREAST NODULE
--- OUTSIDE RECORDS SUMMARY | 2018-04-10 03:40 | XMS REPORT ---
Author Marlene Hernandez Organization [facility] Address [address] [place], [place] [phone] Care Team Providers Care Farm Rancher Name Role Phone Marlene Ibanez PCP Unavailable [...] Varivax Subcutaneous Not Entered 01/08/2010 09/07/2015 999 X 10/29/1998 [employer] MSD Pneumovax [...] Group Number Start Date [employer] [place] [id number] Thursday, 2010 [employer] [place] [id number] N/A [employer] [place] [id number] Thursday, 2009 History of Encounters Visit Date Visit Type Provider 10/18/2015 Office visit Marlene Ibanez SCHOOL PSYCHOMETRIST 02/12/2015 Office visit Chelo Mendez SCHOOL PSYCHOMETRIST 05/06/2014 Office visit Babak Em PA-C 03/20/2014 Office visit Chelo Mendez SCHOOL PSYCHOMETRIST 05/27/2013 Office visit Allan May SCHOOL PSYCHOMETRIST 11/25/2012 Nurse visit Daija Ann RN 09/09/2012 Office visit Rajan Franz MD 07/14/2011 Office visit Rajan Franz MD 07/29/2010 Office visit Alexandria Bueno MD 12/25/2009 Office visit Alexandria Bueno MD 06/05/2009 Office visit Rissa STEEL
--- OUTSIDE RECORDS SUMMARY | 2018-04-10 03:40 | XMS REPORT ---
Author Marlene Hernandez Organization [facility] Address [address] [place], [place] [id number] Care Team Providers Care Aerial Photographer Name Role Phone Marlene Ibanez PCP Unavailable [...] Group Number Start Date [employer] [place] [id number] Thursday, 2010 [employer] [place] [id number] N/A [employer] [place] [id number] Thursday, 2009 History of Encounters Visit Date Visit Type Provider 10/18/2015 Office visit Marlene Ibanez MAJOR ACCOUNT MANAGER 02/12/2015 Office visit Chelo Mendez MAJOR ACCOUNT MANAGER 05/06/2014 Office visit Babak Em PA-C 03/20/2014 Office visit Chelo Mendez MAJOR ACCOUNT MANAGER 05/27/2013 Office visit Allan May MAJOR ACCOUNT MANAGER 11/25/2012 Nurse visit Daija Ann RN 09/09/2012 Office visit Rajan Franz MD 07/14/2011 Office visit Rajan Franz MD 07/29/2010 Office visit Alexandria Bueno MD 12/25/2009 Office visit Alexandria Bueno MD 06/05/2009 Office visit Rissa STEEL
--- NOTE | 2018-04-10 07:12 | Progress Note-Standard ---
Standard Progress Note Progress Notes/Assess & Plan Date Seen by Provider: Apr 10, 2018 Time Seen by Provider: 07:11 Progress/Assessment & Plan This patient is without complaint. She is ambulating, voiding, tolerating oral intake well has good pain control. Patient denies chest pain, denies shortness of breath, denies nausea vomiting, and denies headache. Vital Signs 04/10/18 06:14 Temp 98.4 Pulse 89 Resp 18 B/P (MAP) 118/83 (95) Pulse Ox 98 O2 Delivery Room Air Vital signs are stable. Patient is afebrile. Fundus is firm below the umbilicus and nontender. Extreme show no clubbing or cyanosis. There is no Homans sign. There is some pretibial pitting edema that is normal. Assessment and plan was day number 1 status post term spontaneous vaginal delivery doing well. Plan is for routine convalescence care today and discharge home tomorrow RENNY VARMA MD Apr 10, 2018 7:12 am
[2018-04-10] MEDS: IBUPROFEN 800 MG (MOTRIN) TAB PO SCH ×3 (08:00→18:36)
--- NOTE | 2018-04-10 08:25 | Anesthesia-Regional Post-Op ---
Regional Patient Condition Mental Status: Alert, Oriented x3 Circulation: Same as Pre-Op Headache: Absent Sensation: Full Recovery Motor Block: Absent Post Op Complications Complications Pt reported to SRNA her block "did not work well" and that it was one sided. No other complications reported. Nursing staff did not notify anesthesia telecommunications consultant of block problem last night. Follow Up Care/Instructions Patient Instructions None needed. Anesthesia/Patient Condition Patient is doing well, no complaints, stable vital signs, no apparent adverse anesthesia problems. No complications reported per nursing. D/C home per [facility] Criteria: Yes JAGDISH BONE RIP SAW OPERATOR Apr 10, 2018 08:25
[2018-04-10] MEDS: DOCUSATE SODIUM 100 MG (COLACE) CAP PO SCH ×2 (09:30→20:33)
[2018-04-11] MEDS: IBUPROFEN 800 MG (MOTRIN) TAB PO SCH ×4 (00:31→14:00)
[2018-04-11 02:20] VITALS: BP 105/72
--- NOTE | 2018-04-11 07:17 | Progress Note-Standard ---
Standard Progress Note Progress Notes/Assess & Plan Date Seen by Provider: Apr 11, 2018 Time Seen by Provider: 07:16 Progress/Assessment & Plan This patient is without complaint. She is ambulating, voiding, tolerating oral intake well has good pain control. Patient denies chest pain, denies shortness of breath, denies nausea vomiting, and denies headache. Vital Signs 04/10/18 06:14 Temp 98.4 Pulse 89 Resp 18 B/P (MAP) 118/83 (95) Pulse Ox 98 O2 Delivery Room Air Vital signs are stable. Patient is afebrile. Fundus is firm below the umbilicus and nontender. Extreme show no clubbing or cyanosis. There is no Homans sign. There is some pretibial pitting edema that is normal. Assessment and plan was day number 1 status post term spontaneous vaginal delivery doing well. Plan is for routine convalescence care today and discharge home tomorrow April 11, 2018 Patient is without complaint. She is ambulating, voiding, tolerating oral intake well has good pain control and is requesting discharge home. Vital Signs 04/10/18 04/11/18 20:34 02:20 Temp 97.9 Pulse 79 Resp 18 B/P (MAP) 105/72 (83) Pulse Ox 99 O2 Delivery Room Air Vital signs are stable. Patient is afebrile. Fundus is firm below the umbilicus and nontender. Extremities show no clubbing or cyanosis. There is no Homans sign. Assessment and plan day number 2 status post term spontaneous vaginal delivery doing well. Plan is for discharge home with follow-up in clinic Final Diagnosis Term spontaneous vaginal delivery RENNY VARMA MD Apr 11, 2018 7:17 am
[2018-04-11 07:44] VITALS: BP 107/71
[2018-04-11] MEDS: DOCUSATE SODIUM 100 MG (COLACE) CAP PO SCH (07:58)
[2018-04-11 14:00] VITALS: BP 111/75
[2018-04-11 15:50] VITALS: BP 111/75
== END 2018-04-11 15:50 | disposition home or self-care (01) | DRG 775 ==
LOC: LDRP 07:10
PROVIDERS: ADMIT Obstetrics & Gynecology; ATTEND Obstetrics & Gynecology
PROC: 10E0XZZ Delivery of Products of Conception, External Approach (ICD-10-PCS; principal; 2018-04-09)
PROC: 0HQ9XZZ Repair Perineum Skin, External Approach (ICD-10-PCS; 2018-04-09)
PROC: 3E033VJ Introduction of Other Hormone into Peripheral Vein, Percutaneous Approach (ICD-10-PCS; 2018-04-09)
DX: O41.03X0 Oligohydramnios, third trimester, not applicable or unspecified (principal); O69.81X0 Labor and delivery complicated by cord around neck, without compression, not applicable or unspecified; O70.0 First degree perineal laceration during delivery; O75.89 Other specified complications of labor and delivery; Z3A.37 37 weeks gestation of pregnancy; Z37.0 Single live birth
CPT/HCPCS: 36415; 85025; 86850; 86900; 86901

== ENCOUNTER 2021-02-19 14:07 | Emergency (ER) | payer MEDICAID ==
[~2021-02-19] VITALS: Ht 175.2 cm; Wt 108.4 kg
[~2021-02-19 14:07] MED LIST changes: +DOCU-143 PO; +IBUP-1780 PO; +OXYC1TAB87 PO
--- NOTE | 2021-02-19 14:48 | ED GU-Female ---
General Chief Complaint: Female Reproductive Stated Complaint: VAGINAL BLEEDING,CRAMPING 7 WKS PREG Nursing Triage Note: Pt reports being approximately 7 weeks ; LMP 12/30/2020. Pt c/o brownish/pink spotting yesterday. Pt reports cramping, bleeding and three blood clots today. Pt reports having appt with Dr. Drake next week. Nursing Sepsis Screen: No Definite Risk Source: patient Exam Limitations: no limitations History of Present Illness Date Seen by Provider: Feb 19, 2021 Time Seen by Provider: 14:35 Initial Comments Patient is a 25-year-old female who presents to the emergency department today with a chief complaint of concern for vaginal bleeding. Patient states that she believes she is approximately 7 weeks , she is a G2, P1 her last delivery was 3 years ago. Patient states that she started having some spotting yesterday with some lower abdominal cramping more on the right than anywhere else. Patient states when she woke up this morning she had a little bit heavier bleeding. Patient is taking odng-whk-kkycunz vitamins and no other medications currently. She denies any recent illnesses but has had a mild cough. No fevers, chills, nausea, vomiting, diarrhea. No urinary complaints. No abnormal vaginal discharge. All other review of systems reviewed and negative except as stated above. Timing/Duration: yesterday Severity/Quality: cramping Location: RLQ Radiation: none Activities at Onset: none Prior Genitourinary Problems: none Associated Symptoms: denies symptoms Allergies and Home Medications Allergies Coded Allergies: amoxicillin (Verified Allergy, Unknown, 02/19/21) cefaclor (Verified Allergy, Unknown, 10/30/17) clavulanic acid (Verified Allergy, Unknown, 02/19/21) Home Medications Docusate Sodium 100 Mg Capsule, 100 MG PO BID Prescribed by: RENNY TAVAREZ on 04/09/182226 Ibuprofen 800 Mg Tablet, 800 MG PO Q6H PRN for PAIN Prescribed by: RENNY TAVAREZ on 04/09/182226 Oxycodone HCl/Acetaminophen 1 Each Tablet, 1 EACH PO Q4H Prescribed by: RENNY TAVAREZ on 04/09/182226 Patient Home Medication List Home Medication List Reviewed: Yes Review of Systems Review of Systems Constitutional: see HPI EENTM: no symptoms reported Respiratory: no symptoms reported Cardiovascular: no symptoms reported Gastrointestinal: abdominal pain Genitourinary: no symptoms reported : Yes Expected Date of Delivery: Oct 08, 2021 LMP: Dec 30, 2020 Musculoskeletal: no symptoms reported Skin: no symptoms reported All Other Systemes Reviewed Negative Unless Noted: Yes Past Ixwzzyb-Kxdwto-Cxjrqc Hx Patient Social History Alcohol Use: Denies Use 2nd Hand Smoke Exposure: No Recent Infectious Disease Expo: No Recent Hopitalizations: No Seasonal Allergies Seasonal Allergies: Yes Past Medical History Surgeries: No Respiratory: No Cardiac: No Neurological: No : Yes Last Menstrual Period: Dec 30, 2020 Genitourinary: No Gastrointestinal: No Musculoskeletal: No Endocrine: No HEENT: No Cancer: No Psychosocial: No Integumentary: No Blood Disorders: No Family Medical History Asthma G8 BROTHER Physical Exam Vital Signs Vital Signs - First Documented 02/19/21 14:25 Temp 37.2 Pulse 110 Resp 18 B/P (MAP) 136/87 (103) Pulse Ox 96 O2 Delivery Room Air Capillary Refill : Less Than 3 Seconds Height, Weight, BMI Height: 5'9.00" Weight: 220lbs. 0.0oz. 99.416373sw; 35.00 BMI Method:Stated General Appearance: WD/WN, no apparent distress Neck: normal inspection Cardiovascular: regular rate, rhythm, tachycardia Respiratory: lungs clear, normal breath sounds, no respiratory distress, no accessory muscle use Gastrointestinal: soft, tenderness (Mild tenderness in the right lower quadrant/right pelvis on abdominal palpation) Extremities: normal inspection, no pedal edema Neurologic/Psychiatric: alert, normal mood/affect, oriented x 3 Skin: normal color, warm/dry Progress/Results/Core Measures Suspected Sepsis Recent Fever Within 48 Hours: No Infection Criteria Present: None New/Unexplained Altered Menta: No Sepsis Screen: No Definite Risk SIRS Temperature: Pulse: 110 Respiratory Rate: 18 Laboratory Tests 02/19/21 15:06: White Blood Count 9.3 Blood Pressure 136 /87 Mean: 103 Laboratory Tests 02/19/21 15:06: Platelet Count 238 Results/Orders Lab Results Laboratory Tests Test 02/19/21 14:55 02/19/21 15:06 Range/Units Urine Color YELLOW Urine Clarity CLEAR Urine pH 6.0 5-9 Urine Specific Douglas >=1.030 1.016-1.022 Urine Protein NEGATIVE NEGATIVE Urine Glucose (UA) NEGATIVE NEGATIVE Urine Ketones TRACE H NEGATIVE Urine Nitrite NEGATIVE NEGATIVE Urine Bilirubin NEGATIVE NEGATIVE Urine Urobilinogen 0.2 < = 1.0 MG/DL Urine Leukocyte Esterase TRACE H NEGATIVE Urine RBC (Auto) 2+ H NEGATIVE Urine RBC RARE /HPF Urine WBC 5-10 H /HPF Urine Squamous Epithelial Cells 25-50 H /HPF Urine Crystals NONE /LPF Urine Bacteria FEW H /HPF Urine Casts NONE /LPF Urine Mucus SMALL H /LPF Urine Culture Indicated YES White Blood Count 9.3 4.3-11.0 10^3/uL Red Blood Count 5.29 H 3.80-5.11 10^6/uL Hemoglobin 14.8 11.5-16.0 g/dL Hematocrit 46 35-52 % Mean Corpuscular Volume 88 80-99 fL Mean Corpuscular Hemoglobin 28 25-34 pg Mean Corpuscular Hemoglobin Concent 32 32-36 g/dL Red Cell Distribution Width 12.9 10.0-14.5 % Platelet Count 238 130-400 10^3/uL Mean Platelet Volume 10.0 9.0-12.2 fL Immature Granulocyte % (Auto) 0 % Neutrophils (%) (Auto) 66 42-75 % Lymphocytes (%) (Auto) 25 12-44 % Monocytes (%) (Auto) 6 0-12 % Eosinophils (%) (Auto) 2 0-10 % Basophils (%) (Auto) 1 0-10 % Neutrophils # (Auto) 6.1 1.8-7.8 10^3/uL Lymphocytes # (Auto) 2.3 1.0-4.0 10^3/uL Monocytes # (Auto) 0.6 0.0-1.0 10^3/uL Eosinophils # (Auto) 0.2 0.0-0.3 10^3/uL Basophils # (Auto) 0.1 0.0-0.1 10^3/uL Immature Granulocyte # (Auto) 0.0 0.0-0.1 10^3/uL Human Chorionic Gonadotropin, Quant 3146 H <5 MIU/ML My Orders Orders - HÉCTOR LUCIO MD Cbc With Automated Diff (02/19/21 14:44) Ua Culture If Indicated (02/19/21 14:44) Hcg,Quantitative (02/19/21 14:44) Urine Culture (02/19/21 14:55) Us Ob Transvaginal [id number] (02/19/21 15:45) Vital Signs/I&O 02/19/21 14:25 Temp 37.2 Pulse 110 Resp 18 B/P (MAP) 136/87 (103) Pulse Ox 96 O2 Delivery Room Air Capillary Refill : Less Than 3 Seconds Blood Pressure Mean: 103 Progress Note : Time: 17:14 Progress Note Patient seen and examined, 25-year-old who is approximately 7 weeks by dates presents with a chief complaint of vaginal bleeding and lower abdominal cramping for the last 24 hours. Evaluation today includes a physical exam, CBC, type and Rh, urinalysis, quantitative hCG and ultrasound. Patient's quantitative hCG was greater than 3000. Ultrasound was accomplished which showed a 5-week 3-day intrauterine with no evidence of pole at this time but yolk sac was present. No subchorionic hemorrhage was identified. At this time I have advised the patient that she has a threatened miscarriage. She did have some contamination of her urine but had bacteria present and some leukocyte esterase I am going to go ahead and err on the side of caution and put her on Keflex for 5 days. She has a follow-up appointment scheduled with Dr. Haas in about 10 days. I have given the patient good return precautions. I have recommended pelvic rest. Continuation of vitamins . Patient verbalizes understanding. All questions are sought and answered. Patient is stable for discharge. RhoGam has been given for the patient's Rh- status. Diagnostic Imaging Diagonstic Imaging: Ultrasound Comments NAME: DOMINICK POTTS [facility] REC#: [id number] PT STATUS: REG ER : 1995 PHYSICIAN: HÉCTOR LUCIO MD ADMIT DATE: 02/19/21/ER Draft Date of Exam:02/19/21 US OB TRANSVAGINAL [id number] EXAM: First Trimester Ultrasound INDICATIONS: Age by LMP is 7 weeks, 2 days. TECHNIQUE: The pelvis was scanned using transabdominal and endovaginal technique. COMPARISON: No prior [facility] sonograms. FINDINGS: Endovaginal sonography demonstrates an intrauterine cystic structure measuring 0.8 cm. No pole is seen. A yolk sac is identified. No subchorionic hemorrhage. Both ovaries were identified and appear normal. The left measures 2.6 x 1.1 x 1.2 cm, and the right 3.5 x 2.0 x 2.5 cm. No abnormal adnexal masses. No free fluid. biometry: Mean sac diameter 8 mm: 5 weeks 3 days. IMPRESSION: Intrauterine gestation of uncertain viability with an estimated gestational age of 5 weeks 3 days. Recommend follow-up ultrasound in 10 days to document viability. Dictated on workstation # [id number] Dict: 02/19/21 1659 Trans: 02/19/21 1702 [facility] [id number] Interpreted by: LUX TURCIOS DO Electronically signed by: Departure Impression Primary Impression: Threatened miscarriage in early Disposition: 01 HOME, SELF-CARE Condition: Stable Departure-Patient Inst. Decision time for Depature: 17:16 Referrals: RENNY HAAS MD (PCP/Family) Primary Care Physician Patient Instructions: Threatened Miscarriage (DC) Add. Discharge Instructions: Drink plenty of fluids to stay well-hydrated. Continue your vitamins. You can take [id number] Tylenol as needed for pelvic cramping. Take every 8 hours as needed. Keep your follow-up appointment with Dr. Haas. Return to the emergency room for any worsening pain, bleeding or any other emergent, concerning symptoms. Scripts Cephalexin (Cephalexin) 500 Mg Tablet 500 MG PO TID, #15 TAB Prov: HÉCTOR LUCIO MD 02/19/21 HÉCTOR LUCIO MD Feb 19, 2021 14:48
[2021-02-19 15:00] LABS: BILIRUBIN,URINE NEGATIVE (NEGATIVE); CLARITY,URINE CLEAR; COLOR,URINE YELLOW; GLUCOSE, URINE (UA) NEGATIVE (NEGATIVE); KETONES,URINE TRACE (NEGATIVE); LEUKOCYTE ESTERASE ,URINE TRACE (NEGATIVE); NITRITE,URINE NEGATIVE (NEGATIVE); PROTEIN,URINE NEGATIVE (NEGATIVE)
[2021-02-19 15:10] LABS: RBC,URINE RARE /HPF
[2021-02-19 15:11] LABS: BACTERIA,URINE FEW /HPF; SQUAMOUS EPITHELIAL CELL,UR 25-50 /HPF
[2021-02-19 15:16] LABS: BASOPHILS # (AUTO) 0.1 10^3/uL (0.0-0.1); BASOPHILS % (AUTO) 1 % (0-10); EOSINOPHILS # (AUTO) 0.2 10^3/uL (0.0-0.3); EOSINOPHILS % (AUTO) 2 % (0-10); HEMATOCRIT 46 % (35-52); HEMOGLOBIN 14.8 g/dL (11.5-16.0); LYMPHOCYTES # (AUTO) 2.3 10^3/uL (1.0-4.0); LYMPHOCYTES % (AUTO) 25 % (12-44); MEAN CORPUSCULAR HEMOGLOBIN 28 pg (25-34); MEAN CORPUSCULAR HGB CONC 32 g/dL (32-36); MEAN CORPUSCULAR VOLUME 88 fL (80-99); MONOCYTES # (AUTO) 0.6 10^3/uL (0.0-1.0); MONOCYTES % (AUTO) 6 % (0-12); NEUTROPHILS # (AUTO) 6.1 10^3/uL (1.8-7.8); NEUTROPHILS % (AUTO) 66 % (42-75); PLATELET COUNT 238 10^3/uL (130-400); WHITE BLOOD COUNT 9.3 10^3/uL (4.3-11.0)
--- NOTE | 2021-02-19 17:03 | Diagnostic Imaging Report ---
EXAM: First Trimester Ultrasound INDICATIONS: Age by LMP is 7 weeks, 2 days. TECHNIQUE: The pelvis was scanned using transabdominal and endovaginal technique. COMPARISON: No prior [facility] sonograms. FINDINGS: Endovaginal sonography demonstrates an intrauterine cystic structure measuring 0.8 cm. No pole is seen. A yolk sac is identified. No subchorionic hemorrhage. Both ovaries were identified and appear normal. The left measures 2.6 x 1.1 x 1.2 cm, and the right 3.5 x 2.0 x 2.5 cm. No abnormal adnexal masses. No free fluid. biometry: Mean sac diameter 8 mm: 5 weeks 3 days. IMPRESSION: Intrauterine gestation of uncertain viability with an estimated gestational age of 5 weeks 3 days. Recommend follow-up ultrasound in 10 days to document viability. Dictated by: Dictated on workstation # [id number]
[2021-02-19] MEDS ORDERED: CEPH500T PO (17:18)
[2021-02-19 17:37] VITALS: BP 123/84
[2021-02-19 17:52] VITALS: BP 123/84
== END 2021-02-19 17:52 | disposition home or self-care (01) ==
LOC: EDUNIT# 14:07 → ER 14:09
DX: O20.0 Threatened abortion (principal); Z3A.01 Less than 8 weeks gestation of pregnancy
CPT/HCPCS: 36415; 76817; 81000; 84702; 85025; 87088

== ENCOUNTER 2021-03-22 10:58 | Day surgery (SDC) | payer MEDICAID ==
[~2021-03-22] VITALS: Ht 172.7 cm; Wt 109.0 kg
[2021-03-22] VITALS (9 sets, daily range): BP systolic 116–134; BP diastolic 71–84
[~2021-03-22 10:58] MED LIST changes: +CEPH500T PO
[2021-03-22 11:51] LABS: BASOPHILS % (AUTO) 1 % (0-10); EOSINOPHILS # (AUTO) 0.1 10^3/uL (0.0-0.3); EOSINOPHILS % (AUTO) 1 % (0-10); HEMATOCRIT 45 % (35-52); HEMOGLOBIN 14.2 g/dL (11.5-16.0); LYMPHOCYTES # (AUTO) 2.4 10^3/uL (1.0-4.0); LYMPHOCYTES % (AUTO) 28 % (12-44); MEAN CORPUSCULAR HEMOGLOBIN 28 pg (25-34); MEAN CORPUSCULAR HGB CONC 32 g/dL (32-36); MEAN CORPUSCULAR VOLUME 87 fL (80-99); MEAN PLATELET VOLUME 9.7 fL (9.0-12.2); MONOCYTES # (AUTO) 0.4 10^3/uL (0.0-1.0); MONOCYTES % (AUTO) 5 % (0-12); NEUTROPHILS # (AUTO) 5.7 10^3/uL (1.8-7.8); NEUTROPHILS % (AUTO) 66 % (42-75); PLATELET COUNT 236 10^3/uL (130-400); WHITE BLOOD COUNT 8.7 10^3/uL (4.3-11.0)
[2021-03-22] MEDS ORDERED: MIDAZOLAM 2 MG/2 ML (VERSED) VIAL ONE (12:10)
[2021-03-22] MEDS ORDERED: fentaNYL INJ 100 MCG/2 ML AMP ONE (12:10)
[2021-03-22] MEDS ORDERED: ONDANSETRON 4 MG/2 ML (SDV) Z0FRAN ONE (12:11)
[2021-03-22] MEDS ORDERED: SEVOFLURANE (ULTANE) 15 ML INHAL SOLN ONE (12:11)
[2021-03-22] MEDS ORDERED: proPOfol 200 MG/20 ML (DIPRIVAN) VIAL IV ONE (12:11)
[2021-03-22] MEDS ORDERED: LIDOCAINE PF 2% 5 ML (XYLOCAINE) VIAL ONE (12:11)
[2021-03-22] MEDS ORDERED: LACTATED RINGERS 1,000 ML IV PRN (12:30)
[2021-03-22] MEDS ORDERED: PROPOFOL INJECTION 50 ML IV ONE (14:34)
--- NOTE | 2021-03-22 14:39 | Progress Note-Pre Operative ---
Pre-Operative Progress Note H&P Reviewed The H&P was reviewed, patient examined and no changes noted. Date Seen by Provider: Mar 22, 2021 Time Seen by Provider: 14:39 Date H&P Reviewed: Mar 22, 2021 Time H&P Reviewed: 14:39 Pre-Operative Diagnosis: First trimester missed RENNY VARMA MD Mar 22, 2021 14:39
--- NOTE | 2021-03-22 14:40 | Progress Note-Post Operative ---
Post-Operative Progess Note Surgeon (s)/Liquor Commissioner (s) Surgeon RENNY VARMA MD Liquor Commissioner: None Pre-Operative Diagnosis First trimester missed Post-Operative Diagnosis Same Procedure & Operative Findings Date of Procedure 03/22/21 Procedure Performed/Findings D&C for first trimester missed Anesthesia Type GETA Estimated Blood Loss Estimated blood loss (mL): 100cc Specimens/Packing Specimens Removed Products of conception/uterine contents Packing: none RENNY VARMA MD Mar 22, 2021 14:40
[2021-03-22] MEDS ORDERED: IBUP-1780 PO (14:41)
--- NOTE | 2021-03-22 14:42 | Discharge Inst-Surgical ---
Discharge Inst-Surgical Depart Medication/Instructions New, Converted or Re-Newed RX: Transmitted to Pharmacy Consults/Follow Up Patient Instructions: As directed Orders & Referrals Follow Up Appt: Call to make follow up appt. for patient in 2 weeks. Activity: Rest for 24 hours, than as tolerated. Wound Care: May remove Band-Aid tomorrow. Replace as desired. Keep incisions clean and dry. Wash daily with soap and water. Diet: As tolerated-Clear Liquids only if nauseated. Tomorrow, may shower or tub bathe as desired. No driving for 24 hours, no alcoholic beverages for 24 hours, and nothing per vagina (no tampons, douching, or intercoarse) for 2 weeks. Patient to return to the clinic as soon as possible for: Temperature greater than 101F, Severe Pain, Foul discharge from incision or vagina, Excessive Bleeding (more than a period). Activity Activity as Tolerated: No Diet Discharge Diet: No Restrictions RENNY VARMA MD Mar 22, 2021 14:42
[2021-03-22] MEDS ORDERED: ONDANSETRON 4 MG/2 ML (SDV) Z0FRAN IVP PRN ×2 (14:45→15:15)
[2021-03-22] MEDS ORDERED: KETOROLAC 30 MG/ML VIAL IVP ONE (14:45)
[2021-03-22] MEDS ORDERED: D5 LR IV SOLUTION 1,000 ML IV SCH (14:45)
[2021-03-22] MEDS ORDERED: oxyCODONE/APAP 5/325MG (PERCOCET 5) TABLET PO PRN (14:45)
[2021-03-22] MEDS ORDERED: fentaNYL INJ 100 MCG/2 ML AMP IVP PRN (14:45)
--- NOTE | 2021-03-22 15:11 | Anesthesia-General Post-Op ---
General Patient Condition Mental Status/LOC: Same as Preop Cardiovascular: Satisfactory Nausea/Vomiting: Absent Respiratory: Satisfactory Pain: Controlled Complications: Absent Post Op Complications Complications None Follow Up Care/Instructions Patient Instructions None needed. Anesthesia/Patient Condition Patient Condition Patient is doing well, no complaints, stable vital signs, no apparent adverse anesthesia problems. No complications reported per nursing. SINCERE SANCHEZ CRNA Mar 22, 2021 15:11
[2021-03-22] MEDS ORDERED: morphine INJ 10 MG/ML 1ML (SYR OR VIAL) IVP ONE (15:15)
[2021-03-22] MEDS ORDERED: MEPERIDINE (DEMEROL) INJ 50 MG/ML IVP ONE (15:15)
[2021-03-22] MEDS ORDERED: fentaNYL INJ 100 MCG/2 ML AMP IVP ONE (15:15)
[2021-03-22] MEDS ORDERED: PROMETHAZINE INJ 25 MG/ML (PHENERGAN) AMP IVP ONE (15:15)
[2021-03-22] MEDS ORDERED: KETOROLAC 30 MG/ML VIAL ONE (15:18)
--- NOTE | 2021-03-22 18:46 | OPERATIVE REPORT ---
DATE OF SERVICE: 03/22/2021 PREOPERATIVE DIAGNOSIS: First trimester missed . POSTOPERATIVE DIAGNOSIS: First trimester missed . OPERATIVE PROCEDURE: Suction dilatation and curettage for first trimester missed AB. OPERATIVE DESCRIPTION: With the patient in the supine position under satisfactory general anesthesia, she was repositioned in a dorsal lithotomy position in the [facility] and prepped and draped in the usual fashion for vaginal surgery. A weighted speculum was placed in posterior fornix of vagina, cervix exposed and grasped anteriorly with single tooth tenaculum. Uterus was sounded to 13 cm with uterine sound. The cervix was then serially dilated with Waldo dilators to accommodate a #10 curved suction curette, which was introduced in the uterine cavity, curettaged with removal of large amount of trophoblastic and decidual appearing tissue, blood clot, amniotic fluid and debris. The endometrial cavity was sharply curettaged in all four quadrants to good uterine cry. A curved suction curette was reintroduced. All blood clot and debris were evacuated from the uterus. Suction curette and tenaculum were removed. There was some bleeding from both puncture sites from the tenaculum. This was touched with silver nitrate to effect hemostasis. With hemostasis now assured, with sponge and needle counts correct and blood loss around 100 mL, the patient was then uneventfully awakened from her general anesthesia and transferred to the recovery room in stable condition. Job ID: [id number] DocumentID: [id number] Dictated Date: 03/22/2021 15:00:37 Equipment [employer] Date: 03/22/2021 18:46:01 Dictated By: RENNY VARMA MD
== END 2021-03-22 16:45 | disposition home or self-care (01) ==
LOC: SDC 10:58
PROVIDERS: ATTEND Obstetrics & Gynecology
DX: O02.1 Missed abortion (principal); O03.1 Delayed or excessive hemorrhage following incomplete spontaneous abortion; N92.0 Excessive and frequent menstruation with regular cycle; Z68.36 Body mass index [BMI] 36.0-36.9, adult; Z79.899 Other long term (current) drug therapy; Z80.3 Family history of malignant neoplasm of breast
CPT/HCPCS: 36415; 85025; 87081; 88305

== ENCOUNTER → 2021-12-31 | Outpatient (CLI) | payer MEDICAID ==
[2021-12-31 22:53] LABS: HEPATITIS C ANTIBODY C Non-Reactive (Non-Reactive)
== END ==
LOC: LABNPT 17:40
PROVIDERS: ATTEND Obstetrics & Gynecology
DX: O20.9 Hemorrhage in early pregnancy, unspecified (principal); O41.8X99 Other specified disorders of amniotic fluid and membranes, unspecified trimester, other fetus; Z3A.00 Weeks of gestation of pregnancy not specified
CPT/HCPCS: 84443; 86703; 86762; 86780; 86803; 86850; 86900; 86901; 87340

== ENCOUNTER 2022-06-11 15:41 | Outpatient (CLI) | payer MEDICAID ==
[2022-06-11 15:35] VITALS: BP 118/76
[2022-06-11 16:00] VITALS: BP 118/76
[2022-06-11 16:22] LABS: BILIRUBIN,URINE NEGATIVE (NEGATIVE); CLARITY,URINE CLEAR; COLOR,URINE YELLOW; GLUCOSE, URINE (UA) NEGATIVE (NEGATIVE); KETONES,URINE NEGATIVE (NEGATIVE); LEUKOCYTE ESTERASE ,URINE NEGATIVE (NEGATIVE); NITRITE,URINE NEGATIVE (NEGATIVE); PH,URINE 6.5 (5-9); PROTEIN,URINE NEGATIVE (NEGATIVE)
[2022-06-11 16:36] LABS: BACTERIA,URINE TRACE /HPF; RBC,URINE TNTC /HPF; SQUAMOUS EPITHELIAL CELL,UR 0-2 /HPF; WBC,URINE 0-2 /HPF
[2022-06-11] MEDS ORDERED: FLU QUADRIvalent (6 months+) 60 mcg/0.5 ml 2022-23 (Fluzone) IM ONE (17:00)
--- NOTE | 2022-06-12 09:03 | Physician Query-Final Dx ---
06/12/22 0903: Clinic Account Progress/Dx Physician Query: Please give diagnosis Please include # weeks gestation Date of Service Jun 11, 2022 at 15:41 RENNY VARMA MD 06/13/22 1149: Clinic Account Progress/Dx DIAGNOSIS: Diagnosis False labor at 33 weeks gestation Jun 12, 2022 09:03 RENNY VARMA MD Jun 13, 2022 11:49
== END 2022-06-11 17:20 | disposition home or self-care (01) ==
LOC: WSo 15:41 → LDRP 15:42 → WSo 17:20
PROVIDERS: ATTEND Obstetrics & Gynecology
DX: O46.93 Antepartum hemorrhage, unspecified, third trimester (principal); Z3A.33 33 weeks gestation of pregnancy
CPT/HCPCS: 81000

== ENCOUNTER 2022-07-09 07:00 | Inpatient (IN) | payer MEDICAID ==
[2022-07-09] VITALS (51 sets, daily range): BP systolic 88–144; BP diastolic 51–86
[~2022-07-09] VITALS: Ht 175.2 cm; Wt 110.7 kg
--- NOTE | 2022-07-09 07:29 | History & Physical ---
History and Physical Date Seen by Provider: Jul 09, 2022 Time Seen by Provider: 07:28 This patient is a 26-year-old 3 para 1 A1 female currently at 37-3/7 weeks gestation with severe oligohydramnios and -induced hypertension. She is admitted now for induction of labor. NENA yesterday was under 4. Biophysical profile was 8/8 Allergies are to amoxicillin/cefaclor/clavulanic acid Medications are vitamins Medical social and surgical histories are per the antepartum record HEENT exam is normal Neck is supple no lymphadenopathy no thyromegaly Abdomen is gravid soft nontender nondistended Extremities show no clubbing or cyanosis. There is no Homans' sign. Pelvic exam is pending Assessment and plan 37-3/7 weeks gestation with severe oligohydramnios and PIH. Patient admitted for labor induction. We anticipate vaginal delivery 37 weeks with severe oligohydramnios and PIH Allergies and Home Medications Allergies Coded Allergies: amoxicillin (Verified Allergy, Unknown, 02/19/21) cefaclor (Verified Allergy, Unknown, 10/30/17) clavulanic acid (Verified Allergy, Unknown, 02/19/21) Patient Home Medication List Home Medication List Reviewed: No [] , (Reported) Entered as Reported by: JAK TORRES on 10/30/17 1507 RENNY VARMA MD Jul 09, 2022 07:29
[2022-07-09] MEDS ORDERED: OXYTOCIN PRE-MIX DRIP 500 ML IV SCH ×2 (08:15→15:45)
[2022-07-09 08:24] LABS: BASOPHILS % (AUTO) 0 % (0-10); EOSINOPHILS # (AUTO) 0.1 10^3/uL (0.0-0.3); EOSINOPHILS % (AUTO) 1 % (0-10); HEMATOCRIT 37 % (35-52); HEMOGLOBIN 11.9 g/dL (11.5-16.0); LYMPHOCYTES # (AUTO) 2.6 10^3/uL (1.0-4.0); LYMPHOCYTES % (AUTO) 25 % (12-44); MEAN CORPUSCULAR HEMOGLOBIN 27 pg (25-34); MEAN CORPUSCULAR HGB CONC 32 g/dL (32-36); MEAN CORPUSCULAR VOLUME 83 fL (80-99); MEAN PLATELET VOLUME 10.3 fL (9.0-12.2); MONOCYTES # (AUTO) 0.6 10^3/uL (0.0-1.0); MONOCYTES % (AUTO) 6 % (0-12); NEUTROPHILS # (AUTO) 6.8 10^3/uL (1.8-7.8); NEUTROPHILS % (AUTO) 67 % (42-75); PLATELET COUNT 235 10^3/uL (130-400); WHITE BLOOD COUNT 10.2 10^3/uL (4.3-11.0)
[2022-07-09] MEDS: D5 LR IV SOLUTION 1,000 ML IV SCH ×2 (08:30→13:50)
[2022-07-09] MEDS ORDERED: fentaNYL 2 mcg/ml BUPIVA 0.125 100 ML ONE (12:35)
[2022-07-09] MEDS ORDERED: fentaNYL 2 mcg/ml BUPIVA 0.125 100 ML EPI SCH (13:30)
[2022-07-09] MEDS ORDERED: NALOXONE 0.4 MG/ML 1 ML (NARCAN) VIAL IV PRN ×2 (13:30)
[2022-07-09] MEDS ORDERED: METOCLOPRAMIDE INJ 10 MG/2 ML (REGLAN) IV PRN (13:30)
[2022-07-09] MEDS ORDERED: LACTATED RINGERS 1,000 ML IV SCH (13:30)
[2022-07-09] MEDS ORDERED: ONDANSETRON 4 MG/2 ML (SDV) Z0FRAN IV PRN (13:30)
[2022-07-09] MEDS ORDERED: diphenhydrAMINE 50 MG/ML INJ (BENADRYL) IV PRN (13:30)
[2022-07-09] MEDS ORDERED: LACTATED RINGERS 1,000 ML IV ONE (14:00)
[2022-07-09] MEDS ORDERED: OXYC-199 PO (14:55)
[2022-07-09] MEDS ORDERED: DOCU-143 PO (14:55)
[2022-07-09] MEDS ORDERED: IBUP-1780 PO (14:55)
--- NOTE | 2022-07-09 14:56 | Discharge Inst-Surgical ---
Discharge Inst-Surgical Depart Medication/Instructions New, Converted or Re-Newed RX: Transmitted to Pharmacy Consults/Follow Up Patient Instructions: As directed Orders & Referrals Follow Up Appt: Call to make follow up appt. for patient in 4 weeks. Activity Per routine post vaginal delivery instructions. Diet as tolerated Patient may shower or tub bathe as desired. Activity Activity as Tolerated: No Diet Discharge Diet: No Restrictions RENNY VARMA MD Jul 09, 2022 14:56
[2022-07-09] MEDS ORDERED: BENZOCAINE/MENTHOL (DERMOPLAST) 56 ML CAN TP PRN (15:45)
[2022-07-09] MEDS ORDERED: TETANUS,DIPTH,PERTUSS P/F (BOOSTRIX) 0.5 ML VIAL IM ONE (15:45)
[2022-07-09] MEDS ORDERED: ONDANSETRON 4 MG/2 ML (SDV) Z0FRAN IVP PRN (15:45)
[2022-07-09] MEDS ORDERED: oxyCODONE/APAP 5/325MG (PERCOCET 5) TABLET PO PRN (15:45)
[2022-07-09] MEDS: IBUPROFEN 800 MG (MOTRIN) TAB PO SCH ×2 (16:21→22:14)
--- NOTE | 2022-07-09 17:28 | OB Labor & Delivery Record ---
Labor & Delivery This patient delivered by term spontaneous vaginal delivery a viable male with Apgars of 8 and 9 at 1 and 5 respectively weight of 7 pounds 12 ounces time of 1518 and a cord blood pH is 7.18. Infant was delivered over an intact perineum under epidural analgesia. A single nuchal cord was easily released. The was bulb suctioned on delivery and again on completion of delivery. Umbilical cord when pulses was doubly clamped the father cut the cord the baby was passed to mom's abdomen. Cord bloods were obtained placenta delivered spontaneously [facility]. Cervix vagina rectum and perineum were examined and found intact. Patient recovered in the LDR the baby remained with the mom RENNY VARMA MD Jul 09, 2022 17:28
[2022-07-09] MEDS: DOCUSATE SODIUM 100 MG (COLACE) CAP PO SCH (21:31)
[2022-07-10] MEDS ORDERED: WITCH HAZEL(TUCKS) 40 EA JAR ONE (01:04)
[2022-07-10 01:07] VITALS: BP 127/80
[2022-07-10] MEDS ORDERED: WITCH HAZEL(TUCKS) 40 EA JAR TOP PRN (01:15)
--- NOTE | 2022-07-10 01:15 | OPERATIVE REPORT ---
DATE OF SERVICE: 07/09/2022 DELIVERY NOTE The patient delivered by term spontaneous vaginal delivery a viable male with Apgars of 8 and 9 at 1 and 5 minutes respectively, weight 7 pounds 12 ounces. time of 15:18 and a cord blood pH is pending. The infant was delivered over an intact perineum under epidural analgesia. There was a single nuchal cord that was released after delivery of the head. The infant was bulb suctioned on delivery of the head and then again on completion of delivery. The umbilical cord was doubly clamped when it was pulseless, the father cut the cord, the baby was passed to mom's abdomen. Cord bloods were obtained. The placenta delivered fairly promptly spontaneously Dasilva. It was normal with a 3-vessel cord. The cervix, vagina, rectum, and perineum were examined and found intact. Blood loss was around 250 mL. Sponge and needle counts were correct after the procedure. The patient remained in the LDR for recovery. The baby remained with the mom. Job ID: [id number] DocumentID: [id number] Dictated Date: 07/09/2022 15:28:04 Certifier Date: 07/10/2022 01:15:22 Dictated By: RENNY VARMA MD
[2022-07-10] MEDS: IBUPROFEN 800 MG (MOTRIN) TAB PO SCH ×3 (03:53→16:55)
[2022-07-10 03:55] VITALS: BP 118/77
--- NOTE | 2022-07-10 06:55 | Progress Note ---
Standard Progress Note Progress Notes/Assess & Plan Date Seen by a Provider: Jul 10, 2022 Time Seen by a Provider: 06:54 Progress/Assessment & Plan This patient is without complaint. She is ambulating, voiding, tolerating oral intake well and has good pain control. Vital Signs Date Time Temp Pulse Resp B/P (MAP) Pulse Ox O2 Delivery O2 Flow Rate FiO2 07/10/22 03:55 36.2 77 18 118/77 (91) 100 Room Air 07/10/22 01:07 36.3 88 18 127/80 (96) 97 Room Air 07/09/22 22:15 36.1 80 18 123/65 (84) 97 Room Air 07/09/22 17:31 93 18 113/72 (86) Room Air 07/09/22 17:16 82 18 111/77 (88) Room Air 07/09/22 17:01 76 18 114/55 (74) Room Air 07/09/22 16:46 78 18 131/67 (88) Room Air 07/09/22 16:35 84 18 132/58 (82) Room Air 07/09/22 16:16 78 18 116/74 (88) Room Air 07/09/22 16:01 36.3 83 18 121/75 (90) Room Air 07/09/22 15:46 90 18 121/58 (79) Room Air 07/09/22 15:31 36.3 89 18 126/54 (78) Room Air 07/09/22 15:25 93 18 143/77 (99) Room Air 07/09/22 15:15 111 18 144/74 (97) 98 Room Air 07/09/22 15:00 93 18 137/68 (91) 98 Room Air 07/09/22 14:45 85 18 117/56 (76) 98 Room Air 07/09/22 14:30 79 18 99 Room Air 07/09/22 14:20 77 18 113/57 (75) Room Air 07/09/22 14:15 81 18 121/62 (81) 100 Room Air 07/09/22 14:13 76 18 126/58 (80) 99 Room Air 07/09/22 14:10 77 18 125/60 (81) 99 Room Air 07/09/22 14:00 36.4 112 18 127/57 (80) 98 Room Air 07/09/22 13:55 84 18 103/63 (76) 99 Room Air 07/09/22 13:52 82 18 95/63 (74) 98 Room Air 07/09/22 13:48 77 18 102/59 (73) 99 Room Air 07/09/22 13:45 86 18 105/61 (76) 98 Room Air 07/09/22 13:42 88 18 100/61 (74) 99 Room Air 07/09/22 13:40 89 18 100/57 (71) 99 Room Air 07/09/22 13:35 81 18 103/59 (74) 99 Room Air 07/09/22 13:30 72 18 94/53 (67) 96 Room Air 07/09/22 13:27 80 18 88/52 (64) 98 Room Air 07/09/22 13:25 75 18 93/51 (65) 98 Room Air 07/09/22 13:20 84 18 118/64 (82) 97 Room Air 07/09/22 13:15 94 18 123/61 (81) 98 Room Air 07/09/22 13:10 79 18 122/58 (79) 97 Room Air 07/09/22 13:05 87 18 122/79 (93) 98 Room Air 07/09/22 13:00 93 18 135/77 (96) 97 Room Air 07/09/22 12:50 81 18 119/66 (83) Room Air 07/09/22 12:35 76 18 116/73 (87) Room Air 07/09/22 12:20 82 18 134/86 (102) Room Air 07/09/22 12:05 85 18 112/77 (89) Room Air 07/09/22 11:50 83 18 111/66 (81) Room Air 07/09/22 11:35 87 18 117/72 (87) Room Air 07/09/22 11:20 93 18 105/66 (79) Room Air 07/09/22 11:05 86 18 101/60 (74) Room Air 07/09/22 10:50 88 18 125/67 (86) Room Air 07/09/22 10:45 36.5 07/09/22 10:35 85 18 129/81 (97) Room Air 07/09/22 10:20 80 18 129/79 (96) Room Air 07/09/22 09:50 74 18 119/74 (89) Room Air 07/09/22 09:35 76 18 117/66 (83) Room Air 07/09/22 09:20 86 18 120/68 (85) Room Air 07/09/22 09:05 88 18 123/66 (85) Room Air 07/09/22 08:50 87 18 131/76 (94) Room Air 07/09/22 07:20 36.3 105 18 97 Room Air 07/09/22 07:20 36.3 105 18 119/70 (86) 97 Room Air I & O 07/10/22 07:00 Intake Total 2500 ml Balance 2500 ml Vital signs are stable. Patient is afebrile. Fundus is firm below the umbilicus and nontender. Extremities show no clubbing or cyanosis. No Homans' sign. Assessment and plan day #1 status post term spontaneous vaginal livery doing well. Plans for routine convalescent care with discharge home today or tomorrow as patient prefers RENNY VARMA MD Jul 10, 2022 06:55
[2022-07-10 08:30] VITALS: BP 116/66
[2022-07-10] MEDS: DOCUSATE SODIUM 100 MG (COLACE) CAP PO SCH (10:14)
--- NOTE | 2022-07-10 14:08 | Anesthesia-Regional Post-Op ---
Regional Patient Condition Mental Status: Alert, Oriented x3 Circulation: Same as Pre-Op Headache: Absent Sensation: Full Recovery Motor Block: Absent Post Op Complications Complications None Follow Up Care/Instructions Patient Instructions None needed. Anesthesia/Patient Condition Patient is doing well, no complaints, stable vital signs, no apparent adverse anesthesia problems. No complications reported per nursing. JANIA HEATH DO Jul 10, 2022 14:08
[2022-07-10 16:25] VITALS: BP 121/65
== END 2022-07-10 18:03 | disposition home or self-care (01) | DRG 806 ==
LOC: LDRP 07:00
PROVIDERS: ADMIT Obstetrics & Gynecology; ATTEND Obstetrics & Gynecology
PROC: 10E0XZZ Delivery of Products of Conception, External Approach (ICD-10-PCS; principal; 2022-07-09)
PROC: 3E033VJ Introduction of Other Hormone into Peripheral Vein, Percutaneous Approach (ICD-10-PCS; 2022-07-09)
DX: O13.4 Gestational [pregnancy-induced] hypertension without significant proteinuria, complicating childbirth (principal); O41.03X0 Oligohydramnios, third trimester, not applicable or unspecified; Z37.0 Single live birth; Z3A.37 37 weeks gestation of pregnancy; O69.81X0 Labor and delivery complicated by cord around neck, without compression, not applicable or unspecified; Z28.310 Unvaccinated for COVID-19; Z28.21 Immunization not carried out because of patient refusal; Z88.1 Allergy status to other antibiotic agents
CPT/HCPCS: 36415; 85025; 86850; 86900; 86901